=== PATIENT | male | born 1940 | race Caucasian/White ===

== ENCOUNTER → 2021-10-10 16:14 | Outpatient (CLI) | payer MEDICARE, SELFPAY ==
--- NOTE | ~2021-10-10 | MR_ITS ---
EXAMINATION: MR thoracic spine wo con DATE: 10/10/2021 17:10 INDICATION: New compression fracture. Low back pain. TECHNIQUE: Magnetic resonance imaging (MRI) of the thoracic spine was performed without intravenous c ontrast. Sagittal localizer T1-weighted FSE of the cervical spine was obtained. Thoracic spine sequen dimas included sagittal T2-weighted FSE, sagittal T1-weighted FSE, sagittal T2-weighted FS FSE, and axi al T2-weighted FSE. COMPARISON: None FINDINGS: There is 10 degrees levoscoliosis of thoracolumbar spine. There is kyphosis of thoracic spi ne. There is mild chronic anterior wedging of T3, T5, T6, T7, T8, T9, and T12 vertebral bodies. There is mildly decreased disc height at T3-T4. There is mild to moderately decreased disc height from T5- T6 through T10-T11. At T6-T7, there is a central protrusion with mild central canal stenosis and vent ral indentation of the spinal cord. At T10-T11, the disc is bulging with mild central canal stenosis. There is multilevel facet joint osteoarthritis. On the right, there is mild neural foraminal stenosi s at T1-T2, T2-T3, T8-T9, and T10-T11. On the left, there is mild neural foraminal stenosis at T1-T2, T2-T3, T8-T9, and T10-T11. The spinal cord signal intensity is normal. The conus medullaris is at L1 . IMPRESSION: 1. Moderate thoracic spondylosis. 2. Thoracic kyphosis and levoscoliosis. Reviewed, dictated and finalized at location A.
--- NOTE | ~2021-10-10 | MR_ITS ---
EXAMINATION: MR lumbar spine wo con DATE: 10/10/2021 17:17 INDICATION: New compression fracture. Low back pain. TECHNIQUE: Magnetic resonance imaging (MRI) of the lumbar spine was performed without intravenous con trast. Sequences included sagittal T2-weighted FSE, sagittal T2-weighted FS FSE, sagittal T1-weighted FSE, and axial T2-weighted FSE. COMPARISON: None FINDINGS: There is 12 degrees levoscoliosis of thoracolumbar spine. There is a chronic burst fracture of L1 with 2/5 loss of height, changes of vertebroplasty, and retropulsion of bone 3 mm into central spinal canal. There is a burst fracture of L2 with 2/5 loss of height, retropulsion of bone 2 mm int o central spinal canal, and bone marrow edema. There is a burst fracture of inferior endplate of L3 w ith 1/5 loss of height, bone marrow edema, and retropulsion of bone 3 mm into central spinal canal. T here is a chronic burst fracture of L5 with 2/5 loss of height and changes of vertebroplasty. There i s mildly decreased disc height at T12-L1 and L1-L2, severely decreased disc height at L2-L3, mildly d ecreased disc height at L3-L4, severely decreased disc height at L4-L5, and moderately decreased disc height at L5-S1 with endplate remodeling. The distal spinal cord signal intensity is normal. The con us medullaris is at L1. The following disc levels are specifically discussed: T12-L1: The disc is bulging. There is moderate right and mild left facet joint osteoarthritis. There is mild bilateral neural foraminal stenosis. There is mild central canal stenosis. L1-L2: The disc is bulging. There is mild bilateral facet joint osteoarthritis. There is mild bilater al neural foraminal stenosis. There is mild central canal stenosis. L2-L3: The disc is bulging and has an annular fissure. There is moderate bilateral facet joint osteoa rthritis. There is mild bilateral neural foraminal stenosis. There is mild central canal stenosis. L3-L4: The disc is bulging and has an annular fissure. There is severe bilateral facet joint osteoart hritis. There is mild bilateral neural foraminal stenosis. There is mild central canal stenosis. L4-L5: The disc is bulging and has an annular fissure. There is severe bilateral facet joint osteoart hritis. There is mild bilateral neural foraminal stenosis. There is mild central canal stenosis. L5-S1: The disc is bulging. There is severe bilateral facet joint osteoarthritis. There is mild bilat eral neural foraminal stenosis. There is mild central canal stenosis. IMPRESSION: 1. L2 and L3 burst fractures, likely subacute. 2. Severe lumbar spondylosis. Reviewed, dictated and finalized at location A.
== END ==
PROVIDERS: PCP Internal Medicine; Visit Provider Anesthesiology Pain Medicine
DX: M47.896 Other spondylosis, lumbar region (principal); S32.021A Stable burst fracture of second lumbar vertebra, initial encounter for closed fracture; S32.031A Stable burst fracture of third lumbar vertebra, initial encounter for closed fracture; X58.XXXA Exposure to other specified factors, initial encounter; M47.894 Other spondylosis, thoracic region
CPT/HCPCS: 72146; 72148